=== PATIENT | female | born 1965 | race African-American/Black ===

== ENCOUNTER 2017-01-12 15:39 | Emergency (ER) | payer MEDICAID ==
[~2017-01-12] VITALS: Ht 175.3 cm; Wt 100.0 kg
[~2017-01-12 15:39] MED LIST: ASPI-1035 PO; ATOR80TA76; CLOP75TA2; EZET10TA; LISI40TA4; LOSA100T14 PO; METO-296; NIFE-1
[2017-01-12 17:15] VITALS: BP 124/78
== END 2017-01-12 20:45 | disposition home or self-care (01) ==
LOC: ER 17:15
DX: S20.469A Insect bite (nonvenomous) of unspecified back wall of thorax, initial encounter (principal); Z79.899 Other long term (current) drug therapy; Z79.82 Long term (current) use of aspirin; E78.00 Pure hypercholesterolemia, unspecified; I11.9 Hypertensive heart disease without heart failure; W57.XXXA Bitten or stung by nonvenomous insect and other nonvenomous arthropods, initial encounter; Y93.89 Activity, other specified; Y99.9 Unspecified external cause status; Y92.89 Other specified places as the place of occurrence of the external cause
CPT/HCPCS: 99282

== ENCOUNTER 2017-03-02 15:37 | Inpatient (IN) | payer MEDICAID ==
[~2017-03-02] VITALS: Ht 172.7 cm; Wt 104.3 kg
[~2017-03-02 15:37] MED LIST changes: -ASPI-1035 PO; +ASPI-1159 PO; +ATOR-2 PO; -ATOR80TA76; -CLOP75TA2; -EZET10TA; +IOHEXOL-350 100 ML BOTTLE ONE; -METO-296; +METO-396; +SODIUM CHLORIDE 0.9% 10ML VIAL ONE; +ZET10
[2017-03-02] MEDS ORDERED: SODIUM CHLORIDE 0.9% 1,000 ML IV ONE (18:35)
[2017-03-02] MEDS ORDERED: ASPIRIN 81MG TABLET PO ONE (18:45)
[2017-03-02 19:18] LABS: BASOPHILS % 0.5 % (0.0-2.0); EOSINOPHILS % 0.3 % (0.0-5.0); HEMATOCRIT. 39.8 % (36.0-48.0); HEMOGLOBIN. 12.7 g/dL (12.0-16.0); LYMPHOCYTES % 19.9 % (20.0-50.0); MEAN CORPUSCULAR HEMOGLOBIN 22.8 pg (28.0-32.0); MEAN CORPUSCULAR VOLUME 71.5 fL (81.0-99.0); MEAN PLATELET VOLUME 7.5 fl (7.4-10.4); MONOCYTES % 6.1 % (2.0-8.0); NEUTROPHILS % 73.2 % (40.0-76.0); PLATELET 332 x1000/uL (130-400); RED BLOOD CELL COUNT 5.56 mill/uL (4.2-5.4); RED CELL DISTRIBUTION WIDTH 15.4 % (11.6-14.6)
[2017-03-02 19:21] LABS: CHLORIDE 105 mEq/L (98-107)
[2017-03-02 19:24] LABS: CARBON DIOXIDE 28 mEq/L (21-32)
[2017-03-02 19:25] LABS: INR 1.1; PARTIAL THROMBOPLASTIN TIME 30.1 sec (24.0-34.0); PROTHROMBIN TIME 11.2 sec
[2017-03-02 19:26] LABS: ETHANOL BLOOD < 10 mg/dL
[2017-03-02 19:30] LABS: CREATINE KINASE 117 IU/L (26-192)
[2017-03-02 19:31] LABS: CREATINE KINASE MB FRACTION 0.6 ng/mL (0.5-3.6); TROPONIN I < 0.02 ng/mL (0.00-0.04)
[2017-03-02 21:07] LABS: *AMPHETAMINES SCREEN URINE NEGATIVE (NEGATIVE); *BARBITURATES SCREEN URINE NEGATIVE (NEGATIVE); *BENZODIAZEPINES SCREEN URINE NEGATIVE (NEGATIVE); *COCAINE SCREEN URINE NEGATIVE (NEGATIVE); CANNABINOID URINE SCREEN NEGATIVE (NEGATIVE); METHADONE URINE SCREEN NEGATIVE (NEGATIVE); OPIATES URINE SCREEN NEGATIVE (NEGATIVE); PHENCYCLIDINE URINE SCREEN NEGATIVE (NEGATIVE)
[2017-03-02] MEDS ORDERED: MORPHINE SULFATE 4 MG/ML CPJ (NOT FOR IM USE) IV ONE (22:00)
[2017-03-02] MEDS ORDERED: ONDANSETRON HCL 4MG/2ML VIAL IV ONE (22:00)
[2017-03-02] MEDS ORDERED: CLONIDINE 0.1MG TABLET PO PRN (23:30)
[2017-03-02] MEDS ORDERED: ACETAMINOPHEN 325MG TABLET PO PRN (23:30)
[2017-03-02] MEDS ORDERED: MAGNESIUM/ALUMINUM HYDROXIDE/SIMETHICONE 30ML UDC PO PRN (23:30)
[2017-03-02] MEDS ORDERED: HYDROCODONE/ACETAMINOPHEN 10/325MG TABLET PO PRN (23:30)
[2017-03-02] MEDS ORDERED: DIPHENHYDRAMINE 50MG/ML VIAL IV PRN (23:30)
[2017-03-02] MEDS ORDERED: ONDANSETRON HCL 4MG/2ML VIAL IV PRN (23:30)
[2017-03-03] MEDS ORDERED: HYDR30CR96 TP (00:33)
[2017-03-03] MEDS ORDERED: TRIA15OI8 TP (00:33)
[2017-03-03] MEDS ORDERED: IBUPROFEN 600MG TABLET PO PRN (00:45)
[2017-03-03] MEDS ORDERED: REGADENOSON 0.4 MG/5 ML IV NR (00:45)
[2017-03-03] MEDS ORDERED: SODIUM CHLORIDE 0.9% INJ 3ML FLUSH IVF SCH (06:00)
[2017-03-03] MEDS ORDERED: METOPROLOL TARTRATE 25MG TABLET PO SCH (09:00)
[2017-03-03] MEDS ORDERED: EZETIMIBE 10MG TABLET PO SCH (09:00)
[2017-03-03] MEDS ORDERED: LISINOPRIL 40MG TABLET PO SCH (09:00)
[2017-03-03] MEDS ORDERED: NON FORMULARY PATIENT HOME MED EA XX SCH ×2 (09:00→21:00)
[2017-03-03] MEDS ORDERED: NIFEDIPINE XL 30MG TAB PO SCH (09:00)
[2017-03-03] MEDS ORDERED: ASPIRIN 81MG EC TABLET PO SCH (09:00)
[2017-03-03] MEDS ORDERED: REGADENOSON 0.4 MG/5 ML IV ONE (10:55)
[2017-03-03 14:44] VITALS: BP 129/82
[2017-03-03] MEDS ORDERED: ATORVASTATIN CALCIUM 40MG TABLET PO SCH (21:00)
== END 2017-03-03 15:40 | disposition home or self-care (01) | DRG 347 ==
LOC: ER 18:39 → 5WST 20:58 → EDBEDREQ 21:10 → ENRESERV 21:24
PROVIDERS: ADMIT Internal Medicine; ATTEND Internal Medicine
DX: M54.89 Other dorsalgia (principal); E27.8 Other specified disorders of adrenal gland; I11.9 Hypertensive heart disease without heart failure; K76.89 Other specified diseases of liver; E78.00 Pure hypercholesterolemia, unspecified; E66.9 Obesity, unspecified; I25.10 Atherosclerotic heart disease of native coronary artery without angina pectoris; I83.90 Asymptomatic varicose veins of unspecified lower extremity; K57.30 Diverticulosis of large intestine without perforation or abscess without bleeding; M19.90 Unspecified osteoarthritis, unspecified site; Z79.82 Long term (current) use of aspirin; J98.11 Atelectasis; D64.9 Anemia, unspecified; N89.8 Other specified noninflammatory disorders of vagina; N95.1 Menopausal and female climacteric states; Z82.3 Family history of stroke; Z82.49 Family history of ischemic heart disease and other diseases of the circulatory system; Z83.3 Family history of diabetes mellitus; Z95.5 Presence of coronary angioplasty implant and graft; Z79.899 Other long term (current) drug therapy; I25.2 Old myocardial infarction; Z80.9 Family history of malignant neoplasm, unspecified
CPT/HCPCS: 36415; 71010; 71275; 74174; 78452; 80053; 80305; 81025; 82550; 82553; 83880; 84484; 85025; 85610; 85730; 93005; 93017; 96374; 96375; 99291; A4216; A9500; G0482; J2270; J2405; J2785; J7030; Q9967

== ENCOUNTER 2018-06-08 22:35 | Emergency (ER) | payer MEDICAID ==
[~2018-06-08] VITALS: Ht 172.7 cm; Wt 105.0 kg
[~2018-06-08 22:35] MED LIST changes: +HYDR30CR96 TP; -IOHEXOL-350 100 ML BOTTLE ONE; -SODIUM CHLORIDE 0.9% 10ML VIAL ONE; +TRIA15OI8 TP
[2018-06-08 22:50] VITALS: BP 172/107
== END 2018-06-09 00:30 | disposition home or self-care (01) ==
LOC: ER 22:35
DX: L25.9 Unspecified contact dermatitis, unspecified cause (principal); L73.9 Follicular disorder, unspecified; L21.9 Seborrheic dermatitis, unspecified; L40.9 Psoriasis, unspecified; I10 Essential (primary) hypertension; E78.00 Pure hypercholesterolemia, unspecified; I51.9 Heart disease, unspecified; I25.2 Old myocardial infarction; Z79.899 Other long term (current) drug therapy; Z95.5 Presence of coronary angioplasty implant and graft
CPT/HCPCS: 99283

== ENCOUNTER 2018-09-08 05:03 | Inpatient (IN) | payer MEDICAID ==
[~2018-09-08] VITALS: Ht 170.2 cm; Wt 106.6 kg
[2018-09-08 07:05] LABS: BASOPHILS % 0.6 % (0.0-2.0); EOSINOPHILS % 1.5 % (0.0-5.0); HEMATOCRIT. 38.4 % (36.0-48.0); HEMOGLOBIN. 12.1 g/dL (12.0-16.0); LYMPHOCYTES % 17.6 % (20.0-50.0); MEAN CORPUSCULAR HEMOGLOBIN 22.9 pg (28.0-32.0); MEAN CORPUSCULAR VOLUME 72.3 fL (81.0-99.0); MEAN PLATELET VOLUME 8.2 fl (7.4-10.4); MONOCYTES % 5.4 % (2.0-8.0); NEUTROPHILS % 74.9 % (40.0-76.0); PLATELET 349 x1000/uL (130-400); RED BLOOD CELL COUNT 5.31 mill/uL (4.2-5.4); RED CELL DISTRIBUTION WIDTH 15.5 % (11.6-14.6)
[2018-09-08] MEDS ORDERED: MAGNESIUM/ALUMINUM HYDROXIDE/SIMETHICONE 30ML UDC PO STA (07:35)
[2018-09-08] MEDS ORDERED: FAMOTIDINE 20MG/2ML VIAL IV STA (07:35)
[2018-09-08] MEDS ORDERED: ASPIRIN 325MG EC TABLET PO ONE (07:45)
[2018-09-08 09:40] LABS: CHLORIDE 108 mEq/L (98-107)
[2018-09-08 10:30] VITALS: BP 141/82
[2018-09-08] MEDS ORDERED: ATOR40TA70 PO (10:52)
[2018-09-08] MEDS ORDERED: LOSA50TA20 PO (10:52)
[2018-09-08 11:24] VITALS: BP 141/82
[2018-09-08 12:00] VITALS: BP 120/67
[2018-09-08] MEDS ORDERED: DOCUSATE SODIUM 100MG CAPSULE PO PRN (13:00)
[2018-09-08] MEDS ORDERED: NA PHOS,M-B/NA PHOS,DI-BA ENEMA 118ML PR PRN (13:00)
[2018-09-08] MEDS ORDERED: LORAZEPAM 2MG/ML CPJ IV PRN (13:00)
[2018-09-08] MEDS ORDERED: MAGNESIUM/ALUMINUM HYDROXIDE/SIMETHICONE 30ML UDC PO PRN (13:00)
[2018-09-08] MEDS ORDERED: IPRATROPIUM/ALBUTEROL 0.5-3(2.5)MG/3ML NEB INH PRN (13:00)
[2018-09-08] MEDS ORDERED: DIPHENHYDRAMINE 50MG/ML VIAL IV PRN (13:00)
[2018-09-08] MEDS ORDERED: HYDROCODONE/ACETAMINOPHEN 5/325MG TABLET PO PRN (13:00)
[2018-09-08] MEDS ORDERED: ONDANSETRON HCL 4MG/2ML INJ IV PRN (13:00)
[2018-09-08] MEDS ORDERED: GUAIFENESIN 200MG/10ML SUGAR FREE UDC PO PRN (13:00)
[2018-09-08] MEDS ORDERED: ACETAMINOPHEN 325MG TABLET PO PRN (13:00)
[2018-09-08] MEDS ORDERED: CLONIDINE 0.1MG TABLET PO PRN ×2 (13:00→13:15)
[2018-09-08] MEDS ORDERED: ENOXAPARIN 40MG/0.4ML SYR SUBCUT SCH (13:00)
[2018-09-08] MEDS ORDERED: CLONIDINE 0.2MG TABLET PO PRN (13:15)
[2018-09-08] MEDS ORDERED: MORPHINE SULFATE 10 MG/ML CPJ IV PRN (13:15)
[2018-09-08] MEDS ORDERED: HYDRALAZINE 20MG/ML VIAL IV PRN (13:30)
[2018-09-08 13:31] LABS: CHLORIDE 107 mEq/L (98-107)
[2018-09-08] MEDS: ENOXAPARIN 30MG/0.3ML SYR SUBCUT SCH ×2 (13:48→23:57)
[2018-09-08 16:00] VITALS: BP 130/71
[2018-09-08 18:41] LABS: CANNABINOID URINE SCREEN NEGATIVE (NEGATIVE); OPIATES URINE SCREEN NEGATIVE (NEGATIVE); PHENCYCLIDINE URINE SCREEN NEGATIVE (NEGATIVE)
[2018-09-08 18:42] LABS: *AMPHETAMINES SCREEN URINE NEGATIVE (NEGATIVE); *BARBITURATES SCREEN URINE NEGATIVE (NEGATIVE); *BENZODIAZEPINES SCREEN URINE NEGATIVE (NEGATIVE)
[2018-09-08 18:43] LABS: *COCAINE SCREEN URINE NEGATIVE (NEGATIVE); METHADONE URINE SCREEN NEGATIVE (NEGATIVE)
[2018-09-08 20:00] VITALS: BP 125/77
[2018-09-08] MEDS: METOPROLOL TARTRATE 25MG TABLET PO SCH (21:29)
[2018-09-09] VITALS: BP 122/82
[2018-09-09 04:00] VITALS: BP 125/83
[2018-09-09 07:33] LABS: BASOPHILS % 1.2 % (0.0-2.0); EOSINOPHILS % 3.3 % (0.0-5.0); HEMATOCRIT. 35.1 % (36.0-48.0); HEMOGLOBIN. 11.2 g/dL (12.0-16.0); LYMPHOCYTES % 37.1 % (20.0-50.0); MEAN PLATELET VOLUME 7.6 fl (7.4-10.4); MONOCYTES % 8.1 % (2.0-8.0); NEUTROPHILS % 50.3 % (40.0-76.0); PLATELET 318 x1000/uL (130-400); RED BLOOD CELL COUNT 4.87 mill/uL (4.2-5.4); RED CELL DISTRIBUTION WIDTH 15.2 % (11.6-14.6)
[2018-09-09 07:39] LABS: CHLORIDE 106 mEq/L (98-107)
[2018-09-09 07:53] LABS: CREATINE KINASE 121 IU/L (26-192); CREATINE KINASE MB FRACTION < 1.0 ng/mL (0.5-3.6)
[2018-09-09 07:56] LABS: LDL CHOLESTEROL 106 mg/dL (5-100)
[2018-09-09 07:57] LABS: HDL CHOLESTEROL 49 mg/dL (40-59)
[2018-09-09 08:00] VITALS: BP 123/73
[2018-09-09] MEDS: METOPROLOL TARTRATE 25MG TABLET PO SCH (08:55)
[2018-09-09] MEDS: ENOXAPARIN 30MG/0.3ML SYR SUBCUT SCH (08:56)
[2018-09-09] MEDS ORDERED: ASPIRIN 81MG EC TABLET PO SCH (09:00)
== END 2018-09-09 13:45 | disposition home or self-care (01) | DRG 203 ==
LOC: ER 05:03 → 8WST 07:49 → EDBEDREQ 08:00 → EDBEDREQTM 08:00 → ENRESERV 09:33 → 8WST 11:32
PROVIDERS: ADMIT Internal Medicine; ATTEND Internal Medicine
DX: M94.0 Chondrocostal junction syndrome [Tietze] (principal); E44.1 Mild protein-calorie malnutrition; E78.00 Pure hypercholesterolemia, unspecified; I25.10 Atherosclerotic heart disease of native coronary artery without angina pectoris; I10 Essential (primary) hypertension; Z79.82 Long term (current) use of aspirin; Z95.5 Presence of coronary angioplasty implant and graft; Z68.36 Body mass index [BMI] 36.0-36.9, adult
CPT/HCPCS: 36415; 71045; 80048; 80061; 80305; 82550; 82553; 83735; 83880; 84443; 84484; 85379; 93005; 93306; 96372; 96374; 99285; J1650; J3490

== ENCOUNTER 2019-07-22 12:28 | Emergency (ER) | payer MEDICAID ==
[~2019-07-22] VITALS: Ht 170.2 cm; Wt 105.0 kg
[~2019-07-22 12:28] MED LIST changes: -ASPI-1159 PO; +ASPI-1393 PO; -ATOR-2 PO; +ATOR40TA70 PO; -LISI40TA4; -LOSA100T14 PO; +LOSA50TA41 PO; -ZET10
[2019-07-22] MEDS ORDERED: IBUPROFEN 400MG TABLET PO ONE (14:30)
[2019-07-22 15:47] VITALS: BP 151/86
== END 2019-07-22 15:53 | disposition home or self-care (01) ==
LOC: ER 12:28
DX: S43.491A Other sprain of right shoulder joint, initial encounter (principal); I25.2 Old myocardial infarction; I11.9 Hypertensive heart disease without heart failure; E78.00 Pure hypercholesterolemia, unspecified; Z98.61 Coronary angioplasty status; Z98.51 Tubal ligation status; X58.XXXA Exposure to other specified factors, initial encounter; Y93.89 Activity, other specified; Y92.018 Other place in single-family (private) house as the place of occurrence of the external cause
CPT/HCPCS: 93971; 99284

== ENCOUNTER 2021-12-24 19:42 | Emergency (ER) | payer MEDICAID ==
[~2021-12-24] VITALS: Ht 170.2 cm; Wt 114.0 kg
[~2021-12-24 19:42] MED LIST changes: -ASPI-1393 PO; +ASPI-1497 PO; -NIFE-1; +NIFE-53
[2021-12-24] MEDS ORDERED: METHOCARBAMOL 500MG TABLET PO ONE (22:30)
[2021-12-24] MEDS ORDERED: LIDOCAINE 5% PATCH TOP SCH (22:30)
[2021-12-24] MEDS ORDERED: KETOROLAC 60MG/2ML VIAL IM ONE (22:30)
[2021-12-24] MEDS ORDERED: METHOCARBAMOL 500MG TABLET PO NR (23:56)
[2021-12-24] MEDS ORDERED: KETOROLAC 60MG/2ML VIAL IM NR (23:56)
[2021-12-25 00:17] VITALS: BP 152/86
[2021-12-25] MEDS ORDERED: LIDO1ADH5 TP (00:44)
[2021-12-25] MEDS ORDERED: ACET-2708 MT (00:44)
[2021-12-25] MEDS ORDERED: METH-773 MT (00:44)
== END 2021-12-25 01:18 | disposition home or self-care (01) ==
LOC: ER 19:42
DX: M54.2 Cervicalgia (principal); M47.892 Other spondylosis, cervical region; I25.2 Old myocardial infarction; I10 Essential (primary) hypertension; M19.90 Unspecified osteoarthritis, unspecified site; Z95.1 Presence of aortocoronary bypass graft; Z79.82 Long term (current) use of aspirin
CPT/HCPCS: 72040; 81025; 96372; 99283; J1885

== ENCOUNTER 2022-05-21 11:46 | Emergency (ER) | payer MEDICAID ==
[~2022-05-21] VITALS: Ht 170.2 cm; Wt 114.0 kg
[~2022-05-21 11:46] MED LIST changes: +ACET-2708 MT; +LIDO1ADH5 TP; +METH-773 MT
[2022-05-21 11:51] VITALS: BP 147/80
[2022-05-21] MEDS ORDERED: HYDR453.3 TP (15:16)
== END 2022-05-21 15:25 | disposition home or self-care (01) ==
LOC: ER 12:26
DX: S90.562A Insect bite (nonvenomous), left ankle, initial encounter (principal); E78.00 Pure hypercholesterolemia, unspecified; I25.2 Old myocardial infarction; M19.90 Unspecified osteoarthritis, unspecified site; I11.9 Hypertensive heart disease without heart failure; Z98.890 Other specified postprocedural states; Z95.1 Presence of aortocoronary bypass graft; Z79.82 Long term (current) use of aspirin; W57.XXXA Bitten or stung by nonvenomous insect and other nonvenomous arthropods, initial encounter; Y93.89 Activity, other specified; Y92.018 Other place in single-family (private) house as the place of occurrence of the external cause
CPT/HCPCS: 99282